=== PATIENT | male | born 1990 | race Caucasian/White ===

== ENCOUNTER 2018-03-03 11:36 | Emergency (ER) | payer SELFPAY, MEDICAID ==
[2018-03-03] MEDS: LISSAMINE GREEN OPHTH 1.5 MG STRIP OD (14:15)
[2018-03-03] MEDS: TETRACAINE 0.5% OPHTH SOLN 4ML OD (14:15)
[2018-03-03] MEDS: TETANUS/DIPHTHERIA TOX ADSORB ADULT 0.5ML SYR/VIAL (90714) IM (15:08)
[2018-03-03] MEDS: ERYTHROMYCIN OPHTH OINT OD (15:08)
== END 2018-03-03 15:20 | disposition home or self-care (01) ==
LOC: M ED 11:36
DX: S05.01XA Injury of conjunctiva and corneal abrasion without foreign body, right eye, initial encounter (principal); W20.8XXA Other cause of strike by thrown, projected or falling object, initial encounter; Y92.89 Other specified places as the place of occurrence of the external cause
CPT/HCPCS: 90714

== ENCOUNTER 2020-09-09 21:39 | Emergency (ER) | payer OTHER, SELFPAY ==
[~2020-09-09] VITALS: Ht 172.7 cm; Wt 61.4 kg
[~2020-09-09 21:39] MED LIST: ERYTOIN8 OD
[2020-09-09] MEDS ORDERED: LR 1,000 ML IV ONE (21:45)
[2020-09-09] MEDS ORDERED: METOCLOPRAMIDE INJ 10MG/2ML VIAL (J2765 PER 1) IV ONE (21:55)
[2020-09-09] MEDS ORDERED: BOOSTRIX/ADACEL VACCINE (DIPHTH/PERTUSS/ACELL/TETANUS) 0.5ML SYR IM ONE (21:55)
[2020-09-09] MEDS ORDERED: levETIRAcetam INJection 1,000 MG in D5W 100 ML IV ONE (21:55)
--- NOTE | 2020-09-09 22:20 | REPVR ---
PROCEDURE INFORMATION: Exam: CT Head Without Contrast Exam date and time: 09/09/2020 9:58 PM Age: 30 years old Clinical indication: Syncope and collapse; Additional info: CVA - nursing interventions must not delay CT TECHNIQUE: Imaging protocol: Computed tomography of the head without contrast. Radiation optimization: All CT scans at this facility use at least one of these dose optimization techniques: automated exposure control; mA and/or kV adjustment per patient size (includes targeted exams where dose is matched to clinical indication); or iterative reconstruction. Other technique: STROKE PROTOCOL was implemented. COMPARISON: 1. CT Head without contrast 2014-07-08 17:08 2. MRI-Brain W/O FOLL BY WITH 2014-09-19 16:23 FINDINGS: Brain: Normal. No hemorrhage. Unremarkable white matter. No mass effect. Cerebral ventricles: No ventriculomegaly. Bones/joints: Unremarkable. No acute fracture. Paranasal sinuses: Visualized sinuses are unremarkable. No fluid levels. Mastoid air cells: Visualized mastoid air cells are well aerated. Soft tissues: Left lateral frontal parietal temporal scalp hematoma and contusion. IMPRESSION: No acute intracranial abnormality. ASSESSMENT: ASPECTS ([place] Stroke Program Early CT Score) is 10. Electronically signed by: Dillon Javed On 09/09/2020 22:20:19 PM
[2020-09-09 22:22] LABS: BASO # 0.1 10^3/uL (0.0-0.2); BASO % 0.4 % (0.0-1.0); EOS % 0.1 % (0.0-3.0); HEMOGLOBIN 16.6 g/dl (13.5-17.5); LYMPH # 2.7 10^3/uL (1.5-5.0); LYMPH % 19.8 % (24.0-44.0); MEAN CORPUSCULAR HEMOGLOBIN 28.5 pg (27.0-33.0); MEAN CORPUSCULAR HGB CONC 33.2 g/dl (32.0-36.5); MEAN CORPUSCULAR VOLUME 85.9 fl (80.0-96.0); MONO # 0.4 10^3/uL (0.0-0.8); MONO % 2.6 % (2.0-8.0); NEUTROPHILS # 10.5 10^3/uL (1.5-8.5); NEUTROPHILS % 76.7 % (36.0-66.0); PLATELET COUNT, AUTOMATED 341 10^3/uL (150-450); RED BLOOD COUNT 5.82 10^6/uL (4.30-6.10); WHITE BLOOD COUNT 13.7 10^3/uL (4.0-10.0)
--- NOTE | 2020-09-09 22:30 | REPVR ---
PROCEDURE INFORMATION: Exam: XR Chest Exam date and time: 09/09/2020 10:16 PM Age: 30 years old Clinical indication: Other: CVA TECHNIQUE: Imaging protocol: XR of the chest Views: 1 view. COMPARISON: No relevant prior studies available. FINDINGS: Lungs: Unremarkable. No consolidation. Pleural spaces: Unremarkable. No pleural effusion. No pneumothorax. Heart/Mediastinum: Unremarkable. No cardiomegaly. Bones/joints: Unremarkable. IMPRESSION: No acute findings. Electronically signed by: Dillon Javed On 09/09/2020 22:30:24 PM
--- NOTE | 2020-09-09 22:30 | REPVR ---
PROCEDURE INFORMATION: Exam: CT Cervical Spine Without Contrast Exam date and time: 09/09/2020 9:58 PM Age: 30 years old Clinical indication: Weakness; Additional info: CVA - nursing interventions must not delay CT TECHNIQUE: Imaging protocol: Computed tomography images of the cervical spine without contrast. Radiation optimization: All CT scans at this facility use at least one of these dose optimization techniques: automated exposure control; mA and/or kV adjustment per patient size (includes targeted exams where dose is matched to clinical indication); or iterative reconstruction. COMPARISON: No relevant prior studies available. FINDINGS: Bones/joints: Normal spinal curvature, vertebral body heights, and alignment. No spinal fracture or acute subluxation. Discs/Spinal canal/Neural foramina: Diffuse degenerative disc space loss with degenerative disc osteophyte complexes, facet arthropathy, and ligamentum flavum thickening causes up to moderate spinal and foraminal stenosis greatest at C5-C7. Moderate central disc extrusion centrally at C6-C7. Lungs: Lung apices are normal. Soft tissues: Unremarkable. IMPRESSION: 1. No acute vertebral fracture/subluxation. 2. Prominent disc herniations at C5-C7 with at least, moderate C6-C7 spinal stenosis. Electronically signed by: Dillon Javed On 09/09/2020 22:30:06 PM
[2020-09-09 22:32] LABS: INR 1.05; PROTHROMBIN TIME 13.9 SECONDS (12.5-14.3)
[2020-09-09 22:52] LABS: ALBUMIN 4.8 GM/DL (3.2-5.2); ALT/SGPT 23 U/L (12-78); BILIRUBIN,DIRECT 0.1 MG/DL (0.0-0.2); BILIRUBIN,TOTAL 0.4 MG/DL (0.2-1.0); BLOOD UREA NITROGEN 15 MG/DL (7-18); CALCIUM LEVEL 9.5 MG/DL (8.5-10.1); CARBON DIOXIDE LEVEL 13 MEQ/L (21-32); CHLORIDE LEVEL 105 MEQ/L (98-107); FREE THYROXINE INDEX 2.3 % (1.4-3.8); GLOMERULAR FILTRATION RATE > 60.0 (>60); GLUCOSE, FASTING 187 MG/DL (70-100); POTASSIUM SERUM 4.1 MEQ/L (3.5-5.1); SODIUM LEVEL 137 MEQ/L (136-145); T UPTAKE 28 % (33-40); THYROXINE (T4) 8.2 UG/DL (4.5-12.0); TOTAL PROTEIN 8.4 GM/DL (6.4-8.2)
[2020-09-09] MEDS ORDERED: LEVE250T5 PO (23:45)
[2020-09-10 00:06] VITALS: BP 122/71
--- NOTE | 2020-09-10 05:38 | ECGEPIP ---
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
== END 2020-09-10 00:21 | disposition home or self-care (01) ==
LOC: M ED 21:39
DX: G40.89 Other seizures (principal); G40.919 Epilepsy, unspecified, intractable, without status epilepticus; I45.19 Other right bundle-branch block; M50.222 Other cervical disc displacement at C5-C6 level; M50.223 Other cervical disc displacement at C6-C7 level; M48.02 Spinal stenosis, cervical region
CPT/HCPCS: 70450; 71045; 72125; 80048; 80076; 84436; 84443; 84479; 85025; 85610; 85730; 90715; 93005; 93041; 94760; 96372; 96374; 96375; 99285; J1953; J2765

== ENCOUNTER 2020-12-16 22:58 | Emergency (ER) | payer OTHER, SELFPAY ==
[~2020-12-16] VITALS: Ht 165.1 cm; Wt 55.0 kg
[~2020-12-16 22:58] MED LIST changes: +LEVE250T5 PO
[2020-12-17] MEDS ORDERED: levETIRAcetam INJection 1,000 MG in D5W 100 ML IV ONE (00:20)
[2020-12-17 00:50] LABS: BASO % 0.3 % (0.0-1.0); EOS % 0.1 % (0.0-3.0); HEMATOCRIT 43.8 % (42.0-52.0); HEMOGLOBIN 15.2 g/dl (13.5-17.5); LYMPH # 0.6 10^3/uL (1.5-5.0); LYMPH % 4.7 % (24.0-44.0); MEAN CORPUSCULAR HEMOGLOBIN 28.9 pg (27.0-33.0); MEAN CORPUSCULAR HGB CONC 34.7 g/dl (32.0-36.5); MEAN CORPUSCULAR VOLUME 83.3 fl (80.0-96.0); MONO # 0.6 10^3/uL (0.0-0.8); MONO % 4.8 % (2.0-8.0); NEUTROPHILS # 11.8 10^3/uL (1.5-8.5); NEUTROPHILS % 89.7 % (36.0-66.0); PLATELET COUNT, AUTOMATED 265 10^3/uL (150-450); RED BLOOD COUNT 5.26 10^6/uL (4.30-6.10); WHITE BLOOD COUNT 13.1 10^3/uL (4.0-10.0)
[2020-12-17 01:21] LABS: ALBUMIN 4.1 GM/DL (3.2-5.2); BILIRUBIN,DIRECT 0.1 MG/DL (0.0-0.2); BILIRUBIN,TOTAL 0.4 MG/DL (0.2-1.0); TOTAL PROTEIN 7.2 GM/DL (6.4-8.2)
[2020-12-17 01:27] LABS: BLOOD UREA NITROGEN 12 MG/DL (7-18); CALCIUM LEVEL 9.2 MG/DL (8.5-10.1); CARBON DIOXIDE LEVEL 27 MEQ/L (21-32); CHLORIDE LEVEL 106 MEQ/L (98-107); CREATININE FOR GFR 1.11 MG/DL (0.70-1.30); GLOMERULAR FILTRATION RATE > 60.0 (>60); GLUCOSE, FASTING 117 MG/DL (70-100); POTASSIUM SERUM 4.5 MEQ/L (3.5-5.1); SODIUM LEVEL 136 MEQ/L (136-145)
--- NOTE | 2020-12-17 01:46 | REPVR ---
PROCEDURE INFORMATION: Exam: CT Head Without Contrast Exam date and time: 12/17/2020 12:37 AM Age: 30 years old Clinical indication: Other: Seizure TECHNIQUE: Imaging protocol: Computed tomography of the head without contrast. Radiation optimization: All CT scans at this facility use at least one of these dose optimization techniques: automated exposure control; mA and/or kV adjustment per patient size (includes targeted exams where dose is matched to clinical indication); or iterative reconstruction. COMPARISON: CT Head without contrast 09/09/2020 9:53 PM FINDINGS: Brain: Normal. No hemorrhage. Unremarkable white matter. No mass effect. Cerebral ventricles: No ventriculomegaly. Paranasal sinuses: Visualized sinuses are unremarkable. No fluid levels. Mastoid air cells: Visualized mastoid air cells are well aerated. Bones/joints: Unremarkable. No acute fracture. Soft tissues: Unremarkable. IMPRESSION: Negative noncontrast head CT without change from 09/09/2020. Electronically signed by: Moisés Hdez On 12/17/2020 01:46:08 AM
--- NOTE | 2020-12-17 01:50 | REPVR ---
PROCEDURE INFORMATION: Exam: XR Chest Exam date and time: 12/17/2020 1:21 AM Age: 30 years old Clinical indication: Other: Seizure TECHNIQUE: Imaging protocol: XR of the chest. Views: 1 view. COMPARISON: CR PORTABLE CHEST X-RAY 09/09/2020 10:17 PM FINDINGS: Lungs: Mild pulmonary hyperinflation, not unusual for age. The lungs are unchanged. There are no interval infiltrates. Pleural spaces: Unremarkable. No pleural effusion. No pneumothorax. Heart/Mediastinum: Unremarkable. No cardiomegaly. Bones/joints: Unremarkable. IMPRESSION: Stable negative chest since 09/09/2020. Electronically signed by: Moisés Hdez On 12/17/2020 01:50:19 AM
[2020-12-17] MEDS ORDERED: LEVE750T5 PO (04:28)
[2020-12-17 04:41] VITALS: BP 127/61
== END 2020-12-17 04:49 | disposition home or self-care (01) ==
LOC: M ED 22:58
DX: G40.919 Epilepsy, unspecified, intractable, without status epilepticus (principal); Z79.899 Other long term (current) drug therapy
CPT/HCPCS: 70450; 71045; 80048; 80076; 81001; 84443; 85025; 93041; 94760; 96365; 96366; 99285; J1953

== ENCOUNTER 2022-03-22 16:05 | Emergency (ER) | payer OTHER, SELFPAY ==
[~2022-03-22 16:05] MED LIST changes: +LEVE750T5 PO
[2022-03-22] MEDS ORDERED: LIDOCAINE 1% MDV 20ML VIAL SC ONE (16:20)
[2022-03-22] MEDS ORDERED: levETIRAcetam INJection 1,000 MG in D5W 100 ML IV ONE (16:20)
[2022-03-22] MEDS ORDERED: BOOSTRIX/ADACEL VACCINE (DIPHTH/PERTUSS/ACELL/TETANUS) 0.5ML SYR IM.IMMUN ONE (16:20)
[2022-03-22] MEDS ORDERED: ONDANSETRON 4MG 2ML VIAL IV ONE (16:30)
[2022-03-22 16:47] LABS: BASO # 0.1 10^3/uL (0.0-0.2); BASO % 0.9 % (0.0-1.0); EOS # 0.2 10^3/uL (0.0-0.5); EOS % 1.6 % (0.0-3.0); HEMATOCRIT 42.6 % (42.0-52.0); HEMOGLOBIN 14.6 g/dl (13.5-17.5); LYMPH # 3.3 10^3/uL (1.5-5.0); LYMPH % 35.1 % (24.0-44.0); MEAN CORPUSCULAR HEMOGLOBIN 29.2 pg (27.0-33.0); MEAN CORPUSCULAR HGB CONC 34.3 g/dl (32.0-36.5); MEAN CORPUSCULAR VOLUME 85.2 fl (80.0-96.0); MONO # 0.4 10^3/uL (0.0-0.8); MONO % 4.2 % (2.0-8.0); NEUTROPHILS # 5.4 10^3/uL (1.5-8.5); NEUTROPHILS % 57.8 % (36.0-66.0); PLATELET COUNT, AUTOMATED 295 10^3/uL (150-450); WHITE BLOOD COUNT 9.4 10^3/uL (4.0-10.0)
[2022-03-22 17:17] LABS: ALBUMIN 4.1 GM/DL (3.2-5.2); ALT/SGPT 14 U/L (12-78); BILIRUBIN,DIRECT < 0.1 MG/DL (0.0-0.2); BILIRUBIN,TOTAL 0.4 MG/DL (0.2-1.0); BLOOD UREA NITROGEN 11 MG/DL (7-18); CARBON DIOXIDE LEVEL 15 MEQ/L (21-32); CHLORIDE LEVEL 105 MEQ/L (98-107); CREATININE FOR GFR 1.45 MG/DL (0.70-1.30); GLOMERULAR FILTRATION RATE 59.7 (>60); GLUCOSE, FASTING 109 MG/DL (70-100); MAGNESIUM LEVEL 2.6 MG/DL (1.8-2.4); PHOSPHORUS LEVEL 2.4 MG/DL (2.5-4.9); POTASSIUM SERUM 3.7 MEQ/L (3.5-5.1); SODIUM LEVEL 135 MEQ/L (136-145); TOTAL PROTEIN 7.5 GM/DL (6.4-8.2)
[2022-03-22 17:46] LABS: AMPHETAMINES LEVEL URINE NEGATIVE (NEGATIVE); BARBITURATES URINE NEGATIVE (NEGATIVE); BENZODIAZEPINES URINE NEGATIVE (NEGATIVE); CANNABINOIDS URINE POSITIVE (NEGATIVE); COCAINE METABOLITE URINE NEGATIVE (NEGATIVE); METHADONE URINE NEGATIVE (NEGATIVE); OPIATES URINE NEGATIVE (NEGATIVE); PHENCYCLIDINE URINE NEGATIVE (NEGATIVE)
[2022-03-22] MEDS ORDERED: KEPP1TAB2 PO (18:58)
[2022-03-22 19:20] VITALS: BP 121/68
== END 2022-03-22 19:27 | disposition home or self-care (01) ==
LOC: M ED 16:05
DX: R56.9 Unspecified convulsions (principal); S01.81XA Laceration without foreign body of other part of head, initial encounter; Z91.14 Patient's other noncompliance with medication regimen; Z79.899 Other long term (current) drug therapy
CPT/HCPCS: 12011; 70450; 71045; 80048; 80076; 80307; 83735; 84100; 85025; 90471; 90715; 93005; 93041; 94760; 96365; 96366; 96375; 99285; J1953; J2405

== ENCOUNTER 2022-03-27 09:26 | Emergency (ER) | payer SELFPAY ==
[~2022-03-27] VITALS: Ht 172.7 cm; Wt 58.4 kg
[~2022-03-27 09:26] MED LIST changes: +KEPP1TAB2 PO
[2022-03-27 09:27] VITALS: BP 117/65
== END 2022-03-27 10:14 | disposition home or self-care (01) ==
LOC: M ED 09:26
DX: Z48.02 Encounter for removal of sutures (principal); R56.9 Unspecified convulsions; Z79.899 Other long term (current) drug therapy

== ENCOUNTER 2022-04-29 16:22 | Emergency (ER) | payer SELFPAY ==
[~2022-04-29] VITALS: Ht 172.7 cm; Wt 54.5 kg
[2022-04-29] MEDS ORDERED: levETIRAcetam INJection 1,000 MG in D5W 100 ML IV ONE (16:50)
[2022-04-29 17:38] LABS: BASO # 0.1 10^3/uL (0.0-0.2); BASO % 0.7 % (0.0-1.0); EOS # 0.2 10^3/uL (0.0-0.5); EOS % 2.6 % (0.0-3.0); HEMATOCRIT 43.3 % (42.0-52.0); HEMOGLOBIN 15.1 g/dl (13.5-17.5); LYMPH % 13.7 % (24.0-44.0); MEAN CORPUSCULAR HEMOGLOBIN 29.3 pg (27.0-33.0); MEAN CORPUSCULAR HGB CONC 34.9 g/dl (32.0-36.5); MEAN CORPUSCULAR VOLUME 83.9 fl (80.0-96.0); MONO # 0.4 10^3/uL (0.0-0.8); MONO % 5.2 % (2.0-8.0); NEUTROPHILS # 5.3 10^3/uL (1.5-8.5); NEUTROPHILS % 77.2 % (36.0-66.0); PLATELET COUNT, AUTOMATED 250 10^3/uL (150-450); RED BLOOD COUNT 5.16 10^6/uL (4.30-6.10); WHITE BLOOD COUNT 6.9 10^3/uL (4.0-10.0)
[2022-04-29 18:05] LABS: BLOOD UREA NITROGEN 9 MG/DL (7-18); CALCIUM LEVEL 9.4 MG/DL (8.5-10.1); CARBON DIOXIDE LEVEL 26 MEQ/L (21-32); CHLORIDE LEVEL 105 MEQ/L (98-107); CREATININE FOR GFR 1.37 MG/DL (0.70-1.30); ETHYL ALCOHOL (ETHANOL) < 0.003 % (0.000-0.010); GLOMERULAR FILTRATION RATE > 60.0 (>60); GLUCOSE, FASTING 88 MG/DL (70-100); POTASSIUM SERUM 4.2 MEQ/L (3.5-5.1); SODIUM LEVEL 139 MEQ/L (136-145)
[2022-04-29] MEDS ORDERED: LEVE750T5 PO (18:39)
[2022-04-29 18:45] VITALS: BP 110/65
== END 2022-04-29 19:03 | disposition home or self-care (01) ==
LOC: EDBD 16:22 → M ED 16:22
DX: G40.909 Epilepsy, unspecified, not intractable, without status epilepticus (principal); Z79.899 Other long term (current) drug therapy
CPT/HCPCS: 70450; 80048; 82077; 85025; 93041; 96365; 99285; J1953

== ENCOUNTER 2022-07-10 10:15 | Emergency (ER) | payer MEDICAID, SELFPAY ==
[~2022-07-10] VITALS: Ht 172.7 cm; Wt 59.1 kg
[2022-07-10] MEDS ORDERED: levETIRAcetam INJection 1,000 MG in D5W 100 ML IV ONE (10:35)
[2022-07-10] MEDS ORDERED: KEPP1TAB2 PO (10:36)
[2022-07-10 11:06] LABS: HEMATOCRIT 41.1 % (42.0-52.0); HEMOGLOBIN 14.1 g/dl (13.5-17.5); MEAN CORPUSCULAR HEMOGLOBIN 28.7 pg (27.0-33.0); MEAN CORPUSCULAR HGB CONC 34.3 g/dl (32.0-36.5); MEAN CORPUSCULAR VOLUME 83.7 fl (80.0-96.0); PLATELET COUNT, AUTOMATED 252 10^3/uL (150-450); RED BLOOD COUNT 4.91 10^6/uL (4.30-6.10); WHITE BLOOD COUNT 5.4 10^3/uL (4.0-10.0)
[2022-07-10 11:25] LABS: BLOOD UREA NITROGEN 11 MG/DL (9-23); CALCIUM LEVEL 9.1 MG/DL (8.5-10.1); CARBON DIOXIDE LEVEL 26 MMOL/L (20-31); CHLORIDE LEVEL 105 MMOL/L (98-107); CREATININE FOR GFR 1.11 MG/DL (0.70-1.30); GLOMERULAR FILTRATION RATE > 60.0 (>60); GLUCOSE, FASTING 86 MG/DL (60-100); POTASSIUM SERUM 4.4 MMOL/L (3.5-5.1); SODIUM LEVEL 139 MMOL/L (136-145)
[2022-07-10 13:33] VITALS: BP 109/73
== END 2022-07-10 13:48 | disposition home or self-care (01) ==
LOC: M ED 10:15
DX: G40.909 Epilepsy, unspecified, not intractable, without status epilepticus (principal); F12.10 Cannabis abuse, uncomplicated; Z79.899 Other long term (current) drug therapy
CPT/HCPCS: 80048; 80180; 85027; 96365; 99284; J1953

== ENCOUNTER 2022-08-18 15:36 | Emergency (ER) | payer SELFPAY ==
[~2022-08-18] VITALS: Ht 172.7 cm; Wt 60.0 kg
[2022-08-18] MEDS ORDERED: NS 1,800 ML in IV 1 EA IV ONE (16:05)
[2022-08-18 16:35] LABS: ABG BASE EXCESS -19.4 (-2.0-2.0); ABG HCO3 8.7 MEQ/L (22.0-26.0); ABG O2 SATURATION 98.7 % (95.0-99.0); ABG PARTIAL PRESSURE CO2 28.5 mmHg (35.0-45.0); ABG PARTIAL PRESSURE O2 174.8 mmHg (75.0-100.0); ABG STANDARD HCO3 10.8 MEQ/L (22.0-26.0); ABG TOTAL CO2 9.6 MEQ/L (22.0-29.0)
[2022-08-18 16:37] LABS: BASO # 0.1 10^3/uL (0.0-0.2); BASO % 0.6 % (0.0-1.0); EOS % 0.3 % (0.0-3.0); HEMATOCRIT 47.9 % (42.0-52.0); HEMOGLOBIN 15.8 g/dl (13.5-17.5); LYMPH % 36.9 % (24.0-44.0); MEAN CORPUSCULAR HEMOGLOBIN 29.4 pg (27.0-33.0); MONO # 0.6 10^3/uL (0.0-0.8); MONO % 4.1 % (2.0-8.0); NEUTROPHILS # 7.7 10^3/uL (1.5-8.5); NEUTROPHILS % 56.6 % (36.0-66.0); RED BLOOD COUNT 5.38 10^6/uL (4.30-6.10); WHITE BLOOD COUNT 13.6 10^3/uL (4.0-10.0)
[2022-08-18 16:37] LABS: ABG pH (ARTERIAL) 7.105 UNITS (7.350-7.450)
[2022-08-18 16:54] LABS: PLATELET COUNT, AUTOMATED 399 10^3/uL (150-450)
[2022-08-18] MEDS ORDERED: SUCCINYLCHOLINE INJ 200MG/10ML VIAL IV ONE (16:55)
[2022-08-18] MEDS ORDERED: LIDOCAINE 2% 5ML JELLY UROJET TOP ONE (16:55)
[2022-08-18] MEDS ORDERED: MIDAZOLAM 100MG/100ML-0.9%NACL 100 MG in IV 1 EA IV SCH (16:55)
[2022-08-18] MEDS ORDERED: ETOMIDATE INJ 20MG/10ML VIAL IV ONE (16:55)
[2022-08-18] MEDS ORDERED: D5W IV ONE (17:00)
[2022-08-18] MEDS ORDERED: LEVETIRACETAM IV ONE (17:00)
[2022-08-18 17:08] LABS: ALBUMIN 4.5 G/DL (3.2-5.2); ALKALINE PHOSPHATASE 103 U/L (46-116); ALT/SGPT 12 U/L (7.0-40); AST/SGOT 20 U/L (<34); BILIRUBIN,DIRECT 0.2 MG/DL (<0.4); BILIRUBIN,TOTAL 0.5 MG/DL (0.3-1.2); BLOOD UREA NITROGEN 14 MG/DL (9-23); CARBON DIOXIDE LEVEL < 10.0 MMOL/L (20-31); CHLORIDE LEVEL 98 MMOL/L (98-107); CREATININE FOR GFR 1.32 MG/DL (0.70-1.30); GLOMERULAR FILTRATION RATE > 60.0 (>60); GLUCOSE, FASTING 228 MG/DL (60-100); MAGNESIUM LEVEL 2.9 MG/DL (1.8-2.4); PHOSPHORUS LEVEL 5.2 MG/DL (2.5-4.9); POTASSIUM SERUM 4.2 MMOL/L (3.5-5.1); SODIUM LEVEL 133 MMOL/L (136-145); TOTAL PROTEIN 7.7 G/DL (5.7-8.2)
[2022-08-18 18:32] LABS: ABG BASE EXCESS -7.4 (-2.0-2.0); ABG HCO3 17.5 MEQ/L (22.0-26.0); ABG PARTIAL PRESSURE CO2 34.5 mmHg (35.0-45.0); ABG PARTIAL PRESSURE O2 96.2 mmHg (75.0-100.0); ABG STANDARD HCO3 18.6 MEQ/L (22.0-26.0); ABG TOTAL CO2 18.6 MEQ/L (22.0-29.0); ABG pH (ARTERIAL) 7.324 UNITS (7.350-7.450)
[2022-08-18] MEDS ORDERED: ONDANSETRON 4MG 2ML VIAL IV ONE (19:45)
[2022-08-18] MEDS ORDERED: KEPP1TAB2 PO (21:45)
[2022-08-18] MEDS ORDERED: METOCLOPRAMIDE INJ 10MG/2ML VIAL IV ONE (21:50)
[2022-08-18] MEDS ORDERED: ONDA4TAB6 PO (23:15)
[2022-08-19 00:30] VITALS: BP 127/79
[2022-08-19] MEDS ORDERED: ONDANSETRON 4MG 2ML VIAL IV ONE (00:45)
[2022-08-19 01:12] VITALS: O2SAT 96
== END 2022-08-19 01:14 | disposition home or self-care (01) ==
LOC: M ED 15:36
DX: G40.909 Epilepsy, unspecified, not intractable, without status epilepticus (principal); Z91.14 Patient's other noncompliance with medication regimen; F12.10 Cannabis abuse, uncomplicated; Z79.899 Other long term (current) drug therapy
CPT/HCPCS: 36600; 70450; 71045; 72125; 80048; 80076; 80180; 82140; 82330; 82803; 83605; 83735; 84100; 85025; 87486; 87581; 87633; 87798; 93041; 94760; 96374; 96375; 96376; 99285; J1953; J2405; J2765

== ENCOUNTER 2022-11-08 18:28 | Inpatient (IN) | payer SELFPAY ==
[~2022-11-08] VITALS: Ht 172.7 cm; Wt 59.3 kg
[~2022-11-08 18:28] MED LIST changes: +ONDA4TAB6 PO
[2022-11-08] MEDS ORDERED: levETIRAcetam INJection 2,000 MG in D5W 100 ML IV ONE (19:05)
[2022-11-08] MEDS ORDERED: NS 1,000 ML IV ONE (19:05)
[2022-11-08] MEDS ORDERED: LORazepam 2 MG/ML 1ML VIAL As Ordered ONE (19:34)
[2022-11-08 19:37] LABS: BASO # 0.1 10^3/uL (0.0-0.2); BASO % 0.5 % (0.0-1.0); EOS # 0.1 10^3/uL (0.0-0.5); EOS % 1.3 % (0.0-3.0); HEMATOCRIT 43.5 % (42.0-52.0); LYMPH # 1.2 10^3/uL (1.5-5.0); MEAN CORPUSCULAR HEMOGLOBIN 28.6 pg (27.0-33.0); MEAN CORPUSCULAR HGB CONC 34.5 g/dl (32.0-36.5); MONO # 0.4 10^3/uL (0.0-0.8); MONO % 3.6 % (2.0-8.0); NEUTROPHILS # 8.2 10^3/uL (1.5-8.5); NEUTROPHILS % 82.2 % (36.0-66.0); PLATELET COUNT, AUTOMATED 272 10^3/uL (150-450); RED BLOOD COUNT 5.24 10^6/uL (4.30-6.10)
[2022-11-08] MEDS ORDERED: LORazepam 2 MG/ML 1ML VIAL IV STA (19:38)
[2022-11-08 19:59] LABS: BLOOD UREA NITROGEN 13 MG/DL (9-23); CALCIUM LEVEL 9.3 MG/DL (8.5-10.1); CARBON DIOXIDE LEVEL 22 MMOL/L (20-31); CHLORIDE LEVEL 104 MMOL/L (98-107); CPK CREATINE PHOSPHOKINASE 307 U/L (46-171); GLOMERULAR FILTRATION RATE > 60.0 (>60); GLUCOSE, FASTING 134 MG/DL (60-100); MAGNESIUM LEVEL 2.6 MG/DL (1.8-2.4); POTASSIUM SERUM 3.8 MMOL/L (3.5-5.1); SODIUM LEVEL 137 MMOL/L (136-145)
[2022-11-08 20:01] LABS: PROLACTIN 22.66 NG/ML (2.1-17.7)
[2022-11-08] MEDS ORDERED: KEPP1TAB2 PO (21:37)
[2022-11-09] VITALS (19 sets, daily range): BP systolic 108–119; BP diastolic 57–80; O2SAT 95–98
[2022-11-09] MEDS ORDERED: PHENYTOIN IV ONE ×2 (01:25→01:28)
[2022-11-09] MEDS ORDERED: NS IV ONE ×2 (01:25→01:28)
[2022-11-09] MEDS ORDERED: LEVE750T5 PO (01:29)
[2022-11-09] MEDS ORDERED: HOME MED LIST COMPLETE! XX SCH (01:35)
[2022-11-09] MEDS ORDERED: ACETAMINOPHEN 1000MG 100ML IV BAG IV ONE (02:00)
[2022-11-09] MEDS ORDERED: LORazepam 2 MG/ML 1ML VIAL IV PRN (02:00)
[2022-11-09] MEDS ORDERED: ONDANSETRON 4MG 2ML VIAL As Ordered ONE (02:12)
[2022-11-09] MEDS ORDERED: ONDANSETRON 4MG 2ML VIAL IV ONE (02:15)
[2022-11-09 02:39] LABS: AMPHETAMINES LEVEL URINE NEGATIVE (NEGATIVE)
[2022-11-09 02:40] LABS: BARBITURATES URINE NEGATIVE (NEGATIVE); BENZODIAZEPINES URINE NEGATIVE (NEGATIVE); COCAINE METABOLITE URINE NEGATIVE (NEGATIVE); METHADONE URINE NEGATIVE (NEGATIVE); OPIATES URINE NEGATIVE (NEGATIVE); PHENCYCLIDINE URINE NEGATIVE (NEGATIVE)
[2022-11-09 02:48] LABS: RSV AMPLIFICATION NEGATIVE (NEGATIVE)
[2022-11-09 03:16] LABS: CANNABINOIDS URINE POSITIVE (NEGATIVE)
[2022-11-09 08:17] LABS: BASO % 0.2 % (0.0-1.0); HEMATOCRIT 39.2 % (42.0-52.0); HEMOGLOBIN 13.8 g/dl (13.5-17.5); LYMPH % 6.4 % (24.0-44.0); MEAN CORPUSCULAR HEMOGLOBIN 29.2 pg (27.0-33.0); MEAN CORPUSCULAR HGB CONC 35.2 g/dl (32.0-36.5); MEAN CORPUSCULAR VOLUME 82.9 fl (80.0-96.0); MONO # 1.1 10^3/uL (0.0-0.8); MONO % 6.6 % (2.0-8.0); NEUTROPHILS # 13.8 10^3/uL (1.5-8.5); NEUTROPHILS % 86.3 % (36.0-66.0); PLATELET COUNT, AUTOMATED 230 10^3/uL (150-450); RED BLOOD COUNT 4.73 10^6/uL (4.30-6.10)
[2022-11-09 08:41] LABS: ALBUMIN 4.1 G/DL (3.2-5.2); BILIRUBIN,TOTAL 0.5 MG/DL (0.3-1.2); CALCIUM LEVEL 8.9 MG/DL (8.5-10.1); CREATININE FOR GFR 1.93 MG/DL (0.70-1.30); GLOMERULAR FILTRATION RATE 42.6 (>60); MAGNESIUM LEVEL 2.7 MG/DL (1.8-2.4); POTASSIUM SERUM 4.3 MMOL/L (3.5-5.1); TOTAL PROTEIN 6.5 G/DL (5.7-8.2)
[2022-11-09] MEDS: PHENYTOIN 100MG/2ML VIAL IV SCH ×3 (08:43→23:53)
[2022-11-09] MEDS: levETIRAcetam INJection 750 MG in D5W 100 ML IV SCH ×2 (08:43→20:57)
[2022-11-09] MEDS ORDERED: levETIRAcetam INJection 750 MG in D5W 100 ML IV SCH (09:00)
[2022-11-09] MEDS: NS 1,000 ML IV SCH ×2 (09:52→20:57)
[2022-11-10] VITALS (16 sets, daily range): BP systolic 112–129; BP diastolic 65–79; O2SAT 93–100
[2022-11-10 06:51] LABS: BASO # 0.1 10^3/uL (0.0-0.2); BASO % 0.5 % (0.0-1.0); EOS % 0.3 % (0.0-3.0); HEMATOCRIT 35.9 % (42.0-52.0); HEMOGLOBIN 12.5 g/dl (13.5-17.5); LYMPH # 1.8 10^3/uL (1.5-5.0); LYMPH % 19.1 % (24.0-44.0); MEAN CORPUSCULAR HEMOGLOBIN 29.3 pg (27.0-33.0); MEAN CORPUSCULAR HGB CONC 34.8 g/dl (32.0-36.5); MEAN CORPUSCULAR VOLUME 84.3 fl (80.0-96.0); MONO # 0.8 10^3/uL (0.0-0.8); MONO % 8.3 % (2.0-8.0); NEUTROPHILS # 6.7 10^3/uL (1.5-8.5); NEUTROPHILS % 71.5 % (36.0-66.0); PLATELET COUNT, AUTOMATED 188 10^3/uL (150-450); RED BLOOD COUNT 4.26 10^6/uL (4.30-6.10); WHITE BLOOD COUNT 9.4 10^3/uL (4.0-10.0)
[2022-11-10] MEDS: NS 1,000 ML IV SCH ×2 (07:20→18:15)
[2022-11-10 07:28] LABS: ALBUMIN 3.5 G/DL (3.2-5.2); BILIRUBIN,TOTAL 0.6 MG/DL (0.3-1.2); CALCIUM LEVEL 8.3 MG/DL (8.5-10.1); GLOMERULAR FILTRATION RATE 40.9 (>60); MAGNESIUM LEVEL 2.2 MG/DL (1.8-2.4); POTASSIUM SERUM 3.8 MMOL/L (3.5-5.1); TOTAL PROTEIN 5.6 G/DL (5.7-8.2)
[2022-11-10] MEDS: PHENYTOIN 100MG/2ML VIAL IV SCH (08:12)
[2022-11-10] MEDS: levETIRAcetam INJection 750 MG in D5W 100 ML IV SCH (08:21)
[2022-11-10] MEDS ORDERED: levETIRAcetam 250MG TABLET (KEPPRA) PO ONE (09:35)
[2022-11-10 14:01] LABS: CREATININE FOR GFR 1.66 MG/DL (0.70-1.30); GLOMERULAR FILTRATION RATE 50.7 (>60)
[2022-11-10] MEDS: PHENYTOIN ER 100 MG CAP PO SCH ×2 (15:52→20:38)
[2022-11-10] MEDS: levETIRAcetam 250MG TABLET (KEPPRA) PO SCH (20:38)
[2022-11-11] MEDS: NS 1,000 ML IV SCH (03:11)
[2022-11-11 04:00] VITALS: BP 113/75
[2022-11-11 05:39] LABS: BASO % 0.7 % (0.0-1.0); EOS # 0.1 10^3/uL (0.0-0.5); EOS % 1.7 % (0.0-3.0); HEMATOCRIT 35.8 % (42.0-52.0); HEMOGLOBIN 12.3 g/dl (13.5-17.5); LYMPH # 1.6 10^3/uL (1.5-5.0); LYMPH % 30.1 % (24.0-44.0); MEAN CORPUSCULAR HEMOGLOBIN 28.7 pg (27.0-33.0); MEAN CORPUSCULAR HGB CONC 34.4 g/dl (32.0-36.5); MEAN CORPUSCULAR VOLUME 83.4 fl (80.0-96.0); MONO # 0.6 10^3/uL (0.0-0.8); MONO % 10.8 % (2.0-8.0); NEUTROPHILS # 3.1 10^3/uL (1.5-8.5); NEUTROPHILS % 56.5 % (36.0-66.0); PLATELET COUNT, AUTOMATED 177 10^3/uL (150-450); RED BLOOD COUNT 4.29 10^6/uL (4.30-6.10); WHITE BLOOD COUNT 5.5 10^3/uL (4.0-10.0)
[2022-11-11 06:08] LABS: ALBUMIN 3.4 G/DL (3.2-5.2); BILIRUBIN,TOTAL 0.5 MG/DL (0.3-1.2); CALCIUM LEVEL 8.2 MG/DL (8.5-10.1); CREATININE FOR GFR 1.45 MG/DL (0.70-1.30); GLOMERULAR FILTRATION RATE 59.3 (>60); MAGNESIUM LEVEL 1.8 MG/DL (1.8-2.4); POTASSIUM SERUM 3.9 MMOL/L (3.5-5.1); TOTAL PROTEIN 5.5 G/DL (5.7-8.2)
[2022-11-11 08:29] VITALS: BP 125/86
[2022-11-11] MEDS: levETIRAcetam 250MG TABLET (KEPPRA) PO SCH (10:10)
[2022-11-11] MEDS: PHENYTOIN ER 100 MG CAP PO SCH ×2 (10:10→14:54)
[2022-11-11] MEDS ORDERED: KEPP250T5 PO (10:59)
[2022-11-11] MEDS ORDERED: DILA100C PO (10:59)
== END 2022-11-11 14:55 | disposition home or self-care (01) | DRG 53 ==
LOC: EDBD 18:28 → M ED 18:28 → EDUNIT# 18:28 → M ED INP 11-09 01:56 → M PCU 11-09 03:18 → M MS4PR 11-10 18:05
PROVIDERS: ADMIT Internal Medicine; ATTEND Family Medicine
DX: G40.909 Epilepsy, unspecified, not intractable, without status epilepticus (principal); N17.9 Acute kidney failure, unspecified; M62.82 Rhabdomyolysis; Z79.899 Other long term (current) drug therapy; F12.90 Cannabis use, unspecified, uncomplicated

== ENCOUNTER → 2023-04-27 | Outpatient (CLI) | payer OTHER ==
[~2023-04-27] MED LIST changes: +DILA100C PO; +KEPP250T5 PO
[2023-04-27 13:56] LABS: BASO % 0.8 % (0.0-1.0); EOS # 0.3 10^3/uL (0.0-0.5); EOS % 5.4 % (0.0-3.0); HEMATOCRIT 45.6 % (42.0-52.0); HEMOGLOBIN 15.8 g/dl (13.5-17.5); LYMPH # 1.6 10^3/uL (1.5-5.0); LYMPH % 31.7 % (24.0-44.0); MEAN CORPUSCULAR HEMOGLOBIN 30.3 pg (27.0-33.0); MEAN CORPUSCULAR HGB CONC 34.6 g/dl (32.0-36.5); MEAN CORPUSCULAR VOLUME 87.4 fl (80.0-96.0); MONO # 0.4 10^3/uL (0.0-0.8); NEUTROPHILS # 2.8 10^3/uL (1.5-8.5); NEUTROPHILS % 54.9 % (36.0-66.0); PLATELET COUNT, AUTOMATED 244 10^3/uL (150-450); RED BLOOD COUNT 5.22 10^6/uL (4.30-6.10)
[2023-04-27 14:14] LABS: PHENYTOIN (DILANTIN) 13.3 UG/ML (10.0-20.0)
[2023-04-27 14:16] LABS: ALBUMIN 4.3 G/DL (3.2-5.2); ALKALINE PHOSPHATASE 125 U/L (46-116); ALT/SGPT 16 U/L (7.0-40); AST/SGOT 14 U/L (<34); BILIRUBIN,TOTAL 0.4 MG/DL (0.3-1.2); BLOOD UREA NITROGEN 12 MG/DL (9-23); CALCIUM LEVEL 9.6 MG/DL (8.5-10.1); CARBON DIOXIDE LEVEL 30 MMOL/L (20-31); CHLORIDE LEVEL 104 MMOL/L (98-107); CREATININE FOR GFR 1.01 MG/DL (0.70-1.30); GLOMERULAR FILTRATION RATE > 60.0 (>60); GLUCOSE, FASTING 82 MG/DL (60-100); POTASSIUM SERUM 4.3 MMOL/L (3.5-5.1); SODIUM LEVEL 141 MMOL/L (136-145); TOTAL PROTEIN 7.4 G/DL (5.7-8.2)
== END ==
LOC: M LAB 13:06
PROVIDERS: ATTEND Psychiatry & Neurology Neurology
DX: R56.9 Unspecified convulsions (principal); Z79.899 Other long term (current) drug therapy

== ENCOUNTER 2023-05-16 00:42 | Emergency (ER) | payer BC, OTHER ==
[~2023-05-16] VITALS: Ht 172.7 cm; Wt 56.8 kg
[2023-05-16 01:21] LABS: BASO # 0.1 10^3/uL (0.0-0.2); BASO % 0.6 % (0.0-1.0); EOS # 0.2 10^3/uL (0.0-0.5); EOS % 2.6 % (0.0-3.0); HEMATOCRIT 42.1 % (42.0-52.0); HEMOGLOBIN 14.6 g/dl (13.5-17.5); LYMPH # 2.7 10^3/uL (1.5-5.0); LYMPH % 33.2 % (24.0-44.0); MEAN CORPUSCULAR HEMOGLOBIN 29.8 pg (27.0-33.0); MEAN CORPUSCULAR HGB CONC 34.7 g/dl (32.0-36.5); MEAN CORPUSCULAR VOLUME 85.9 fl (80.0-96.0); MONO # 0.4 10^3/uL (0.0-0.8); MONO % 4.6 % (2.0-8.0); NEUTROPHILS # 4.9 10^3/uL (1.5-8.5); NEUTROPHILS % 58.9 % (36.0-66.0); PLATELET COUNT, AUTOMATED 256 10^3/uL (150-450); WHITE BLOOD COUNT 8.2 10^3/uL (4.0-10.0)
[2023-05-16 01:34] LABS: BLOOD UREA NITROGEN 15 MG/DL (9-23); CALCIUM LEVEL 8.9 MG/DL (8.5-10.1); CARBON DIOXIDE LEVEL 16 MMOL/L (20-31); CHLORIDE LEVEL 104 MMOL/L (98-107); CREATININE FOR GFR 1.18 MG/DL (0.70-1.30); GLOMERULAR FILTRATION RATE > 60.0 (>60); GLUCOSE, FASTING 101 MG/DL (60-100); POTASSIUM SERUM 4.5 MMOL/L (3.5-5.1); SODIUM LEVEL 137 MMOL/L (136-145)
[2023-05-16] MEDS ORDERED: levETIRAcetam INJection 1,000 MG in D5W 100 ML IV ONE (02:50)
[2023-05-16] MEDS ORDERED: ONDANSETRON 4MG 2ML VIAL IV ONE (02:50)
[2023-05-16] MEDS ORDERED: NS 1,000 ML IV ONE (02:50)
[2023-05-16 03:30] LABS: AMPHETAMINES LEVEL URINE NEGATIVE (NEGATIVE); BARBITURATES URINE NEGATIVE (NEGATIVE); BENZODIAZEPINES URINE NEGATIVE (NEGATIVE); COCAINE METABOLITE URINE NEGATIVE (NEGATIVE); METHADONE URINE NEGATIVE (NEGATIVE)
[2023-05-16 03:31] LABS: OPIATES URINE NEGATIVE (NEGATIVE); PHENCYCLIDINE URINE NEGATIVE (NEGATIVE)
[2023-05-16 03:43] LABS: CANNABINOIDS URINE POSITIVE (NEGATIVE)
[2023-05-16 04:06] LABS: VENOUS BASE EXCESS -8.1 (-2.0-2.0); VENOUS HCO3 18.7 MMOL/L (23.0-27.0); VENOUS O2 SATURATION 90.1 % (60.0-80.0); VENOUS PARTIAL PRESSURE CO2 43.2 mmHg (38.0-50.0); VENOUS PARTIAL PRESSURE O2 66.5 mmHg (30.0-50.0); VENOUS PH 7.255 UNITS (7.330-7.430); VENOUS STANDARD HCO3 17.8 MMOL/L; VENOUS TOTAL CO2 20.1 MMOL/L (24.0-28.0)
[2023-05-16 04:39] LABS: ETHYL ALCOHOL (ETHANOL) < 0.003 % (0.000-0.010)
[2023-05-16] MEDS ORDERED: PHENYTOIN 100MG/2ML VIAL IV ONE (05:00)
[2023-05-16 06:45] VITALS: BP 108/78; TEMP 98.8; O2SAT 98
== END 2023-05-16 06:48 | disposition home or self-care (01) ==
LOC: M ED 00:42 → EDBD 00:42 → M ED 06:48
DX: G40.909 Epilepsy, unspecified, not intractable, without status epilepticus (principal); Z91.148 Patient's other noncompliance with medication regimen for other reason; Z79.899 Other long term (current) drug therapy
CPT/HCPCS: 70450; 71045; 72125; 80048; 80185; 80307; 82077; 82803; 85025; 93041; 94760; 96374; 96375; 99291; J1165; J1953; J2405

== ENCOUNTER → 2023-07-24 | Outpatient (CLI) | payer OTHER ==
[2023-07-24 12:01] LABS: BASO # 0.1 10^3/uL (0.0-0.2); BASO % 1.1 % (0.0-1.0); EOS # 0.2 10^3/uL (0.0-0.5); EOS % 5.1 % (0.0-3.0); HEMATOCRIT 43.9 % (42.0-52.0); HEMOGLOBIN 15.2 g/dl (13.5-17.5); LYMPH # 1.4 10^3/uL (1.5-5.0); LYMPH % 31.6 % (24.0-44.0); MEAN CORPUSCULAR HEMOGLOBIN 29.3 pg (27.0-33.0); MEAN CORPUSCULAR HGB CONC 34.6 g/dl (32.0-36.5); MEAN CORPUSCULAR VOLUME 84.6 fl (80.0-96.0); MONO # 0.3 10^3/uL (0.0-0.8); MONO % 7.6 % (2.0-8.0); NEUTROPHILS # 2.4 10^3/uL (1.5-8.5); NEUTROPHILS % 54.4 % (36.0-66.0); PLATELET COUNT, AUTOMATED 245 10^3/uL (150-450); RED BLOOD COUNT 5.19 10^6/uL (4.30-6.10); WHITE BLOOD COUNT 4.5 10^3/uL (4.0-10.0)
[2023-07-24 12:11] LABS: ERYTHROCYTE SEDIMENTATION RATE < 1 mm/hr (0-15)
[2023-07-24 12:33] LABS: C REACTIVE PROTEIN QUANTITATIV < 0.40 MG/DL (<1.0)
[2023-07-24 12:35] LABS: ALKALINE PHOSPHATASE 106 U/L (46-116); ALT/SGPT 10 U/L (7.0-40); AST/SGOT 9 U/L (<34); BILIRUBIN,TOTAL 0.4 MG/DL (0.3-1.2); BLOOD UREA NITROGEN 10 MG/DL (9-23); CALCIUM LEVEL 9.1 MG/DL (8.5-10.1); CARBON DIOXIDE LEVEL 33 MMOL/L (20-31); CHLORIDE LEVEL 106 MMOL/L (98-107); CREATININE FOR GFR 1.08 MG/DL (0.70-1.30); GLOMERULAR FILTRATION RATE > 60.0 (>60); GLUCOSE, FASTING 88 MG/DL (60-100); POTASSIUM SERUM 4.7 MMOL/L (3.5-5.1); SODIUM LEVEL 139 MMOL/L (136-145); TOTAL PROTEIN 6.8 G/DL (5.7-8.2)
[2023-07-24 12:36] LABS: FREE T4 0.88 NG/DL (0.89-1.76); THYROID STIMULATING HORMONE 1.682 uIU/ML (0.55-4.78)
[2023-07-24 13:02] LABS: HIV 1&2 SCREEN NEGATIVE (NEGATIVE)
[2023-07-24 13:09] LABS: HEPATITIS C VIRUS ABY INDEX < 0.02 INDEX (<0.8)
== END ==
LOC: M LAB 11:22
PROVIDERS: ATTEND Student in an Organized Health Care Education/Training Program
DX: R63.4 Abnormal weight loss (principal)